=== PATIENT | female | born 1990 | race Two or more races ===

== ENCOUNTER 2020-06-05 09:15 | Outpatient (CLI) | payer OTHER | END 2020-06-05 09:22 | disposition home or self-care (01) | LOC: SONOGRAMA 09:15 → MAMO-SONO 09:45 | DX: M25.532 Pain in left wrist (principal); M25.531 Pain in right wrist; M25.541 Pain in joints of right hand; M25.542 Pain in joints of left hand ==

== ENCOUNTER → 2022-05-29 | Outpatient (CLI) | payer OTHER | END | disposition home or self-care (01) | LOC: SONOGRAMA 09:53 | DX: G56.01 Carpal tunnel syndrome, right upper limb (principal); S80.911A Unspecified superficial injury of right knee, initial encounter ==